=== PATIENT | male | born 1965 | race African-American/Black ===

== ENCOUNTER 2017-11-09 03:02 | Emergency (ER) | payer MEDICAID ==
[~2017-11-09] VITALS: Ht 182.9 cm; Wt 108.0 kg
[~2017-11-09 03:02] MED LIST: ALBU6.7H INH; PHEN100C4 PO
[2017-11-09 06:30] LABS: HEMATOCRIT. 42.9 % (42.0-52.0); HEMOGLOBIN. 14.6 g/dL (14.0-18.0); LYMPHOCYTES % 30.3 % (20.0-50.0); MEAN CORPUSCULAR HEMOGLOBIN 30.4 pg (28.0-32.0); MEAN CORPUSCULAR VOLUME 89.6 fL (80.0-94.0); MEAN PLATELET VOLUME 9.9 fl (7.4-10.4); MONOCYTES % 8.2 % (2.0-8.0); NEUTROPHILS % 57.5 % (40.0-76.0); PLATELET 189 x1000/uL (130-400); RED BLOOD CELL COUNT 4.79 mill/uL (4.7-6.1); RED CELL DISTRIBUTION WIDTH 13.1 % (11.6-14.6)
[2017-11-09 06:37] LABS: CHLORIDE 106 mEq/L (98-107)
[2017-11-09 06:41] LABS: ETHANOL BLOOD < 10 mg/dL
[2017-11-09] MEDS ORDERED: MAGNESIUM/ALUMINUM HYDROXIDE/SIMETHICONE 30ML UDC PO STA (06:41)
[2017-11-09] MEDS ORDERED: VISCOUS LIDOCAINE 2% 15 ML UDC PO STA (06:41)
[2017-11-09 06:42] LABS: CLARITY URINE CLEAR (CLEAR); COLOR URINE YELLOW (YELLOW); KETONES URINE NEGATIVE (NEGATIVE); LEUKOCYTE ESTERASE URINE NEGATIVE (NEGATIVE); NITRITE URINE NEGATIVE (NEGATIVE); OCCULT BLOOD URINE NEGATIVE (NEGATIVE); PH URINE 7.5 (4.5-8.0); PROTEIN URINE NEGATIVE (NEGATIVE); UROBILINOGEN URINE 0.2 E.U./dL (0.2-1.0)
[2017-11-09] MEDS ORDERED: FAMOTIDINE 20MG TABLET PO ONE (06:45)
[2017-11-09 09:21] VITALS: BP 120/80
== END 2017-11-09 09:24 | disposition home or self-care (01) ==
LOC: ER 03:02
DX: R16.0 Hepatomegaly, not elsewhere classified (principal); J45.909 Unspecified asthma, uncomplicated; F17.200 Nicotine dependence, unspecified, uncomplicated; F12.10 Cannabis abuse, uncomplicated; J93.9 Pneumothorax, unspecified
CPT/HCPCS: 36415; 76705; 80053; 81003; 83690; 85025; 99285; G0482; Z7610